=== PATIENT | male | born 1940 | race Caucasian/White ===

== ENCOUNTER 2017-01-15 19:45 | Inpatient (IN) | payer MEDICARE, BC ==
[2017-01-13 19:10] LABS: BASOPHILS ABSOLUTE 0.1 10/3/uL (0.0-0.2); EOSINOPHILS ABSOLUTE 0.1 10/3/uL (0.0-0.5); HEMOGLOBIN 10.2 g/dL (13.6-17.8); LYMPHOCYTES 5.8 %; LYMPHOCYTES ABSOLUTE 0.3 10/3/uL (0.7-4.3); MEAN CORPUS HGB CONC 32.5 g/dL (32.0-36.0); MEAN CORPUSCULAR HEMOGLOB 29.7 pg (26.0-34.0); MEAN PLATELET VOLUME 9.4 fL (6.8-10.8); MONOCYTES 12.9 %; MONOCYTES ABSOLUTE 0.7 10/3/uL (0.2-1.2); NEUTROPHILS 78.3 %; NEUTROPHILS ABSOLUTE 4.5 10/3/uL (2.0-8.4); PLATELET COUNT 257 10/3/uL (150-400); RBC DISTRIBUTION WIDTH 15.6 % (12.0-16.0); RED CELL COUNT 3.44 10/6/uL (4.7-6.1); WHITE BLOOD CELLS 5.8 10/3/uL (4.5-10.5)
[2017-01-13 19:17] LABS: HEMATOCRIT 31.4 % (40.0-51.0); MANUAL DIFF NO %; MEAN CORPUSCULAR VOLUME 91.2 fL (80-100)
--- NOTE | ~2017-01-15 | CN ---
Consultation Report [facility] [address] [place]. [address] NAME: FRED GARCIA : 41 STATUS : ADM IN PAT#: [id number] AGE: 76 ADM/REG DATE : 01/15/17 MR#: [id number] REPORT SERV DATE: 01/19/17 DICTATED BY: SHERRY ELIZABETH DATE: 01/18/17 REPORT STATUS : Draft TRANSCRIBED BY: MODGiorgi DATE: 01/18/17 INFECTIOUS DISEASE CONSULT. DATE OF CONSULTATION: 01/18/2017 REASON FOR CONSULTATION: Pneumonia. HISTORY OF PRESENT ILLNESS: This is a very pleasant 76-year-old man, who underwent cardiac transplant back in 2001, who also has end-stage renal disease on chronic dialysis for the past two years. He was in his baseline state of health until about a week ago when he developed some shortness of breath and cough which became productive of some light beige colored sputum. Two days after this he saw his primary care physician, and says he was given an intramuscular shot and started on oral Levaquin which he took that day and again 48 hours later. His cough though during this time progressed and he also had some mild low- grade fevers subjectively and worsening shortness of breath, and he called his fur plucker at [facility] who recommended hospitalization, and the patient presented to the emergency department early on the evening of 01/15/2017. His white blood cell count was normal. His chest x-ray though showed a worsening left upper lobe infiltrate compared to a film from 01/13/2017 which itself was changed from the prior film. He was started on Zosyn. The patient states that he has steadily improved since admission and is "much better." His cough is decreased, his breathing is better, and he is on 1 L of oxygen only. The patient did undergo a CT scan of the chest without IV contrast on 01/17/2017 which more clearly demonstrated a dense patchy consolidation in the left upper lobe with less prominent nodular consolidation scattered throughout the right upper lobe consistent with bilateral pneumonia. There were some old chronic changes also noted including loculated fluid in the major fissure which is less than prior studies and calcified pleural plaques. The patient states he did receive influenza vaccination this year for this flu season and is up to date on Pneumovax, but has not received Prevnar. PAST MEDICAL HISTORY: In addition is as noted above. Positive for cardiac transplant in 2001. He had a recent evaluation about six weeks ago at [facility] including cardiac cath and cardiac biopsies all of which looked good. He has end-stage renal disease as noted, coronary artery disease, emphysema, gout, osteoarthritis. 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 ALLERGIES: NO KNOWN DRUG ALLERGIES. PRESENT MEDICATIONS: In addition to Zosyn include allopurinol, Norvasc, Lipitor, vitamin D, Celexa, mycophenolate 360 mg p.o. b.i.d., Nephro-vitamins, Protonix, tacrolimus 0.5 mg p.o. b.i.d. SOCIAL HISTORY: Past smoker. Nondrinker. Lives with his who is here in the room with him. Not really that active. No pets. No pertinent travel history recently. Consultation Report [address] [place]. [address] NAME: FRED GARCIA : 42 STATUS : ADM IN [facility]#: [id number] AGE: 76 ADM/REG DATE : 01/15/17 MR#: [id number] REPORT SERV DATE: 01/19/17 DICTATED BY: SHERRY ELIZABETH DATE: 01/18/17 REPORT STATUS : Draft TRANSCRIBED BY: SONIDO DATE: 01/18/17 FAMILY HISTORY: Notable for coronary artery disease. REVIEW OF SYSTEMS: Otherwise negative. No nausea, vomiting, diarrhea, chest pain, genitourinary symptoms. PHYSICAL EXAMINATION: VITAL SIGNS: The patient weighs 84 kg. He is afebrile. Blood pressure 128/57, pulse 95, oxygen saturation 95% on 1 L. GENERAL: He is alert and pleasant, in no acute distress. He was not coughing during my time with him. HEAD AND NECK: Conjunctivae are normal. The oral cavity is clear. No thrush. Neck is supple. No adenopathy. LUNGS: He does have a few scattered inspiratory crackles in the left posterior spence, otherwise clear on the right. CARDIAC: Regular rate and rhythm. Normal S1, S2 with a 2/6 systolic ejection murmur, loudest along the left sternal border, softer elsewhere. ABDOMEN: Soft and nontender. Bowel sounds present. No masses appreciated. EXTREMITIES: No significant edema. He has peripheral IV in the right upper extremity without phlebitis. SKIN: Without rash. LABORATORY STUDIES: White blood cell count on admission was 5.6, today 5.5, hemoglobin 7.3, and platelets 219. Albumin 2.3. Procalcitonin on 01/16/2017 was 0.53, yesterday 0.50. Admission blood cultures are negative. Serial chest x-rays are reviewed and CT scan as noted. IMPRESSION: Pneumonia in a cardiac transplantation patient who also is on dialysis, which was not responsive to outpatient Levaquin, but has been improving in the hospital on IV Zosyn. He does not have any unusual exposure history. His improvement on Zosyn is reassuring that this is unlikely to be an atypical or opportunistic pathogen. PLAN: 1. We will continue the Zosyn. 2. I will discuss options for discharge later in the week with Nephrology. Cefepime given three times a week after dialysis may be an option as I am not as confident with transition to oral antibiotic therapy in this patient especially given his failure on outpatient Levaquin. /MODL Consultation Report [address] [place]. [address] NAME: FRED GARCIA : 42 STATUS : ADM IN [facility]#: [id number] AGE: 76 ADM/REG DATE : 01/15/17 MR#: [id number] REPORT SERV DATE: 01/19/17 DICTATED BY: SHERRY ELIZABETH DATE: 01/18/17 REPORT STATUS : Draft TRANSCRIBED BY: SONIDO DATE: 01/18/17 Sherry Elizabeth M.D. / [id number] CC: Marco A Upton M.D. Stuart G Ginther, M.D.
--- NOTE | ~2017-01-15 | DS ---
Discharge Summary [facility] [address] [place]. [address] NAME: FRED GARCIA : 42 STATUS : DIS IN PAT#: [id number] AGE: 77 ADM/REG DATE : 01/15/17 MR#: [id number] REPORT SERV DATE: 03/02/17 DICTATED BY: GALEN CHAVEZ. DATE: 03/01/17 REPORT STATUS : Draft TRANSCRIBED BY: MODL DATE: 03/01/17 ADMISSION DATE: 01/15/2017 DISCHARGE DATE: 01/20/2017 ADMISSION DIAGNOSES: 1. Multifocal pneumonia with failed outpatient oral therapy. 2. Cardiac transplant patient with chronic immunosuppression. 3. Coronary artery bypass grafting. 4. End-stage renal disease. DISCHARGE DIAGNOSES: 1. Multifocal pneumonia with failed outpatient oral therapy. 2. Cardiac transplant patient with chronic immunosuppression. 3. Coronary artery bypass grafting. 4. End-stage renal disease. CONSULTATIONS: Infectious Disease, Dr. Elizabeth. PROCEDURES: Hemodialysis on 01/18/2017. HISTORY OF PRESENT ILLNESS: The patient is a 77-year-old white male with significant past medical history of end-stage renal disease, CABG, cardiac transplant on chronic immunosuppression was admitted for further evaluation and management of pneumonia. HOSPITAL COURSE: The patient was admitted for management of pneumonia. Chest x-ray revealed left upper lobe pneumonia. The patient was placed on IV antibiotics (Maxipime). He had clinical improvement. Because of the location of the pneumonia in the left upper lobe and his history of immune suppression, Infectious Disease was consulted. The patient completed course of Maxipime as an outpatient. On hemodialysis, he receive 3 g of Maxipime as the last dose on his dialysis completed as an outpatient at his dialysis unit. DISPOSITION: Disposition is to home. CONDITION: Good. FOLLOWUP: Follow up with his home hemodialysis unit. LELIA/SONIDO Galen Chavez M.D. / [id number]
--- NOTE | ~2017-01-15 | CN ---
Consultation Report [facility] [address] [place]. [address] NAME: FRED GARCIA : 42 STATUS : ADM IN PAT#: [id number] AGE: 76 ADM/REG DATE : 01/15/17 MR#: [id number] REPORT SERV DATE: 01/16/17 DICTATED BY: DATE: REPORT STATUS : Draft TRANSCRIBED BY: MODL DATE: 01/16/17 NEPHROLOGY CONSULTATION DATE OF CONSULTATION: REASON FOR ADMISSION: End-stage renal disease, known cardiac transplant with community- acquired pneumonia. HISTORY OF PRESENT ILLNESS: This is a very pleasant 76-year-old male patient, who dialyzes on a [id number] schedule at [facility]. He reports to [facility] after feeling poorly since of the previous week. He was seen by his primary care provider in evaluation and received p.o. antibiotics. As he continued to feel worse, he contacted his cardiac transplant team who insisted that he be evaluated here at [facility]. He was diagnosed with left upper lobe pneumonia and is admitted this afternoon in favor of antibiotics, further workup, and supportive care. He denies current chest pain. No nausea, vomiting, or diarrhea. He is awake, alert, and oriented, lying in bed this afternoon during evaluation. His last hemodialysis was on Wednesday per his usual schedule with no current complaints and states that he feels much improved from previous. PAST MEDICAL HISTORY: Positive for end-stage renal disease, Wednesday, Wednesday, Wednesday hemodialysis via a left upper extremity fistula; coronary artery disease, status post cardiac transplantation in 07/2002; emphysema; history of gout; hypotension with chronic use of ProAmatine; osteoarthritis; previous cervical spine fusion; anemia of chronic kidney disease; osteoarthritis; prior ischemic cardiac heart disease with multiple bypass graft surgeries; and adult-onset diabetes mellitus type 2. REVIEW OF SYSTEMS: Completed. Please see HPI for pertinent details. SOCIAL HISTORY: No ETOH. No illicit drugs. No tobacco. FAMILY HISTORY: Noncontributory and not reviewed during this consultation at admission. ALLERGIES: HE REPORTS NO KNOWN ALLERGIES. ACTIVE MEDICATIONS: Include allopurinol 100 mg p.o. daily, ASA 81 mg daily, Lipitor 40 mg p.o. at bedtime, B complex one tab p.o. daily, vitamin D 5000 units p.o. daily, Celexa 20 mg p.o. daily, Myfortic 360 mg p.o. daily, Zofran 4 mg p.o. q.6 hours p.r.n., Protonix 40 mg daily, promethazine 12.5 to 25 p.r.n. q.6 hours for emesis, and Prograf 0.5 mg p.o. b.i.d. PHYSICAL EXAMINATION: VITAL SIGNS: Blood pressure 168/78, temperature at 98.0, heart rate 84 and regular, respirations 19 per minute, and 99% on 2 L. GENERAL: He is awake, alert, and oriented x3, in no acute distress, lying in bed. Consultation Report [place] [place] [id number] [facility] [place]. [address] NAME: FRED GARCIA : 42 STATUS : ADM IN [facility]#: [id number] AGE: 76 ADM/REG DATE : 01/15/17 MR#: [id number] REPORT SERV DATE: 01/16/17 DICTATED BY: DATE: REPORT STATUS : Draft TRANSCRIBED BY: MODGiorgi DATE: 01/16/17 HEENT: Normocephalic, atraumatic. Normal ocular movements. No scleral icterus or conjunctival pallor is appreciated. NECK: Supple without thyromegaly. No JVD or mass. CHEST: Shows positive S1 and S2. No rubs or gallops. LUNGS: Diminished throughout with normal expansion and effort bilaterally. No appreciated rhonchi or wheezes during auscultation. GI: Positive bowel sounds to all four quadrants. No appreciable mass or tenderness. : Deferred. EXTREMITIES: Show positive pulses in all four extremities. No clubbing, cyanosis, or edema. He does have a right upper extremity fistula with palpable bruit and thrill. NEUROLOGIC: Appears to be grossly intact. Nonfocal. SKIN: Warm, dry, and intact to the visualized surfaces. No rash, lesions, or ecchymosis. LABORATORY DATA: Pertinent laboratories and imaging to this evaluation: Persistent upper left-sided infiltrates consistent with a left upper lobe pneumonia. Most recent CBC: White blood cell count of 4.9, RBC 2.97, hemoglobin 8.8, hematocrit 27.9, and platelets at 261. Sodium 140, potassium 3.8, chloride 98, CO2 of 31, BUN 24, creatinine 4.25. Corrected GFR 13 mL/minute, glucose of 88, calcium 8.8, magnesium 1.4. Troponin 0.20. B-natriuretic peptide 337.7. IMPRESSION AND PLAN: End-stage renal disease patient with known cardiac transplant as per history above, now admitted with left upper lobe pneumonia, onset approximately of this week with no reported associated febrile episodes, no associated chest pain or other complaints, and no elevation in his white count. As the patient currently is inpatient admission, change his current Zosyn antibiotics to Levaquin IV. Continue his current medications including his immunosuppressants as he shows no febrile episodes nor elevated white count. Place on strict I's and O's and daily weights. Next hemodialysis will be on Wednesday of the upcoming week. Check procalcitonin. Trend his troponins that are currently mildly elevated with no complaint of chest pain. We will not consult Cardiology at this time, but may consider if troponins were to trend upward. Further modification of treatment plan may be made based on clinical presentation of patient, laboratory results, and further consultation with renal attending. /SONIDO Orlando Solano NP / [id number] CC: Jose Carlos Lozada M.D. Consultation Report [address] [place]. [address] NAME: FRED GARCIA : 42 STATUS : ADM IN [facility]#: [id number] AGE: 76 ADM/REG DATE : 01/15/17 MR#: [id number] REPORT SERV DATE: 01/16/17 DICTATED BY: DATE: REPORT STATUS : Draft TRANSCRIBED BY: MODL DATE: 01/16/17 Will DIALLO
[~2017-01-15 19:45] MED LIST: ACET500CAP PO; ADVAIR INH; ALBUTEROL; AMB5 PO; AMOXIL500 MG PO; APRES25 PO; APRES50 PO; ASAB PO; AT25 PO; ATV1; ATV1 PO; BEN25 PO; BUM2 PO; C5 PO; CALTRAT600 PO; CARDCD180 PO; CELEXA20 PO; CELEXA40 MG PO; CLOBETASOL0.051 EX; COLCH6 PO; CYCLOSPORINE25 MG OR; D 5000 PO; DAPSONE 100 MG100 MG OR; DIALYVITE PO; EDECRIN 25 MG T25 MG PO; FLEX PO; HALF81 PO; IMDUR120 PO; IMDUR60 PO; KLOR-CON M2020 MEQ PO; L80 PO; LIPITOR40 PO; LORT7 PO; MAXITROL OPH; MYFORTIC180 MG PO; MYFORTIC360 MG PO; NEORAL25 MG OR; NORCO1 TA1 PO; NOVOLOG SC; P5 PO; PR12.5 PO; PRAVACHOL80 MG PO; PRILO PO; PROAIR HFA INH; PROAMAT5 PO; PROGRAF0.5 PO; PROGRAF1 PO; PROTONIX PO; RAPAMUNE PO; RESTASIS OPH; TOPXL25 PO; TUMSROLL PO; VASOTEC5 PO; VITAMIN D1000 UNI1 PO; Z100 PO
[2017-01-15 20:34] LABS: BASOPHILS 0.7 %; BASOPHILS ABSOLUTE 0.04 10/3/uL (0.0-0.16); EOSINOPHILS 2.3 %; EOSINOPHILS ABSOLUTE 0.13 10/3/uL (0.0-0.53); ER CBC TAT 0 Hrs 10 Mins; HEMATOCRIT 30.4 % (40.0-51.0); HEMOGLOBIN 9.7 g/dL (13.6-17.8); IMMATURE GRANULOCYTES 0.2 %; IMMATURE GRANULOCYTES ABSOLUTE 0.01 10/3/uL (0.0-0.11); LYMPHOCYTES 9.9 %; LYMPHOCYTES ABSOLUTE 0.56 10/3/uL (0.67-4.30); MEAN CORPUS HGB CONC 31.9 g/dL (32.0-36.0); MEAN CORPUSCULAR HEMOGLOB 29.7 pg (26.0-34.0); MEAN PLATELET VOLUME 11.1 fL (9.2-13.0); MONOCYTES 13.1 %; MONOCYTES ABSOLUTE 0.74 10/3/uL (0.21-1.20); NEUTROPHILS 73.8 %; NEUTROPHILS ABSOLUTE 4.15 10/3/uL (2.02-8.40); PLATELET COUNT 271 10/3/uL (150-400); RBC DISTRIBUTION WIDTH 15.4 % (12.0-16.0); RED CELL COUNT 3.27 10/6/uL (4.7-6.1); WHITE BLOOD CELLS 5.6 10/3/uL (4.5-10.5)
[2017-01-15 20:35] LABS: MANUAL DIFF NO %
[2017-01-15 20:37] LABS: INTERNATIONAL NORMAL RATI 1.2 UNITS (-); PARTIAL THROMBO TIME 30.3 SEC (22.5-37.2); PROTIME (NOT ORD) 14.7 SEC (12.0-14.5)
[2017-01-15] MEDS ORDERED: ZOFRAN ODT4 MG PO (20:44)
[2017-01-15 21:03] LABS: CALCIUM, SERUM 8.8 MG/DL (8.5-10.4); CHLORIDE, SERUM 98 MMOL/L (96-112); CO2 (CARBON DIOXIDE) 31 MMOL/L (24-34); GLUCOSE, SERUM 88 MG/DL (60-99); SODIUM, SERUM 140 MMOL/L (135-148)
[2017-01-15 21:04] LABS: BUN (BLOOD UREA NITROGEN) 24 MG/DL (6-23); CHEST PAIN PROFILE TAT 0 Hrs 21 Mins; CREATININE 4.25 MG/DL (0.70-1.30); GFR AFRICAN AMERICAN 15 ML/MIN (>=60); GFR NON AFRICAN AMERICAN 13 ML/MIN (>=60); POTASSIUM, SERUM 3.8 MMOL/L (3.5-5.3)
[2017-01-16 06:32] LABS: BASOPHILS 0.8 %; BASOPHILS ABSOLUTE 0.04 10/3/uL (0.0-0.16); EOSINOPHILS 5.1 %; EOSINOPHILS ABSOLUTE 0.25 10/3/uL (0.0-0.53); HEMATOCRIT 27.9 % (40.0-51.0); HEMOGLOBIN 8.8 g/dL (13.6-17.8); IMMATURE GRANULOCYTES 0.2 %; IMMATURE GRANULOCYTES ABSOLUTE 0.01 10/3/uL (0.0-0.11); LYMPHOCYTES 13.6 %; LYMPHOCYTES ABSOLUTE 0.67 10/3/uL (0.67-4.30); MEAN CORPUS HGB CONC 31.5 g/dL (32.0-36.0); MEAN CORPUSCULAR HEMOGLOB 29.6 pg (26.0-34.0); MEAN CORPUSCULAR VOLUME 93.9 fL (80-100); MEAN PLATELET VOLUME 10.3 fL (9.2-13.0); MONOCYTES 17.1 %; MONOCYTES ABSOLUTE 0.84 10/3/uL (0.21-1.20); NEUTROPHILS 63.2 %; NEUTROPHILS ABSOLUTE 3.11 10/3/uL (2.02-8.40); PLATELET COUNT 261 10/3/uL (150-400); RBC DISTRIBUTION WIDTH 15.2 % (12.0-16.0); RED CELL COUNT 2.97 10/6/uL (4.7-6.1); WHITE BLOOD CELLS 4.9 10/3/uL (4.5-10.5)
[2017-01-16 06:33] LABS: MANUAL DIFF NO %
[2017-01-16 14:34] LABS: TROPONIN I 0.23 NG/ML (<0.05)
[2017-01-16 14:49] LABS: PROCALCITONIN 0.53 ng/mL (<0.5)
[2017-01-17 07:05] LABS: BASOPHILS 0.4 %; BASOPHILS ABSOLUTE 0.02 10/3/uL (0.0-0.16); EOSINOPHILS 3.1 %; EOSINOPHILS ABSOLUTE 0.17 10/3/uL (0.0-0.53); HEMATOCRIT 25.3 % (40.0-51.0); HEMOGLOBIN 7.9 g/dL (13.6-17.8); IMMATURE GRANULOCYTES 0.4 %; IMMATURE GRANULOCYTES ABSOLUTE 0.02 10/3/uL (0.0-0.11); LYMPHOCYTES 8.7 %; LYMPHOCYTES ABSOLUTE 0.47 10/3/uL (0.67-4.30); MEAN CORPUS HGB CONC 31.2 g/dL (32.0-36.0); MEAN CORPUSCULAR HEMOGLOB 29.2 pg (26.0-34.0); MEAN CORPUSCULAR VOLUME 93.4 fL (80-100); MEAN PLATELET VOLUME 9.9 fL (9.2-13.0); MONOCYTES 15.7 %; MONOCYTES ABSOLUTE 0.85 10/3/uL (0.21-1.20); NEUTROPHILS 71.7 %; NEUTROPHILS ABSOLUTE 3.87 10/3/uL (2.02-8.40); PLATELET COUNT 225 10/3/uL (150-400); RBC DISTRIBUTION WIDTH 15.4 % (12.0-16.0); RED CELL COUNT 2.71 10/6/uL (4.7-6.1); WHITE BLOOD CELLS 5.4 10/3/uL (4.5-10.5)
[2017-01-17 07:11] LABS: MANUAL DIFF NO %
[2017-01-17 07:40] LABS: ALBUMIN 2.4 G/DL (3.5-5.0); BUN (BLOOD UREA NITROGEN) 40 MG/DL (6-23); CALCIUM, SERUM 8.7 MG/DL (8.5-10.4); CHLORIDE, SERUM 101 MMOL/L (96-112); CO2 (CARBON DIOXIDE) 25 MMOL/L (24-34); CREATININE 7.03 MG/DL (0.70-1.30); GFR AFRICAN AMERICAN 8 ML/MIN (>=60); GFR NON AFRICAN AMERICAN 7 ML/MIN (>=60); GLUCOSE, SERUM 93 MG/DL (60-99); PHOSPHORUS, SERUM 4.2 MG/DL (2.5-4.5); POTASSIUM, SERUM 3.7 MMOL/L (3.5-5.3); SODIUM, SERUM 139 MMOL/L (135-148); TROPONIN I 0.15 NG/ML (<0.05)
[2017-01-17 15:32] LABS: HEMATOCRIT 25.5 % (40.0-51.0); HEMOGLOBIN 8.1 g/dL (13.6-17.8)
[2017-01-18 00:35] LABS: HEMOGLOBIN 7.1 g/dL (13.6-17.8)
[2017-01-18 08:18] LABS: BASOPHILS 0.6 %; BASOPHILS ABSOLUTE 0.03 10/3/uL (0.0-0.16); EOSINOPHILS 4.6 %; EOSINOPHILS ABSOLUTE 0.25 10/3/uL (0.0-0.53); HEMOGLOBIN 7.3 g/dL (13.6-17.8); IMMATURE GRANULOCYTES 0.6 %; IMMATURE GRANULOCYTES ABSOLUTE 0.03 10/3/uL (0.0-0.11); LYMPHOCYTES 11.6 %; LYMPHOCYTES ABSOLUTE 0.63 10/3/uL (0.67-4.30); MEAN CORPUS HGB CONC 31.7 g/dL (32.0-36.0); MEAN CORPUSCULAR VOLUME 91.3 fL (80-100); MEAN PLATELET VOLUME 9.8 fL (9.2-13.0); MONOCYTES 12.3 %; MONOCYTES ABSOLUTE 0.67 10/3/uL (0.21-1.20); NEUTROPHILS 70.3 %; NEUTROPHILS ABSOLUTE 3.84 10/3/uL (2.02-8.40); PLATELET COUNT 219 10/3/uL (150-400); RBC DISTRIBUTION WIDTH 15.3 % (12.0-16.0); RED CELL COUNT 2.52 10/6/uL (4.7-6.1); WHITE BLOOD CELLS 5.5 10/3/uL (4.5-10.5)
[2017-01-18 08:19] LABS: MANUAL DIFF NO %
[2017-01-18 08:30] LABS: ALBUMIN 2.3 G/DL (3.5-5.0); CALCIUM, SERUM 8.7 MG/DL (8.5-10.4); CHLORIDE, SERUM 102 MMOL/L (96-112); CO2 (CARBON DIOXIDE) 23 MMOL/L (24-34); GFR AFRICAN AMERICAN 6 ML/MIN (>=60); GFR NON AFRICAN AMERICAN 5 ML/MIN (>=60); GLUCOSE, SERUM 82 MG/DL (60-99); PHOSPHORUS, SERUM 4.1 MG/DL (2.5-4.5); SODIUM, SERUM 141 MMOL/L (135-148)
[2017-01-18 08:33] LABS: BUN (BLOOD UREA NITROGEN) 48 MG/DL (6-23)
[2017-01-18 08:34] LABS: CREATININE 8.84 MG/DL (0.70-1.30)
[2017-01-20 13:46] LABS: BASOPHILS 0.3 %; BASOPHILS ABSOLUTE 0.02 10/3/uL (0.0-0.16); EOSINOPHILS 2.4 %; EOSINOPHILS ABSOLUTE 0.17 10/3/uL (0.0-0.53); HEMATOCRIT 23.2 % (40.0-51.0); HEMOGLOBIN 7.2 g/dL (13.6-17.8); IMMATURE GRANULOCYTES 0.4 %; IMMATURE GRANULOCYTES ABSOLUTE 0.03 10/3/uL (0.0-0.11); LYMPHOCYTES 6.6 %; LYMPHOCYTES ABSOLUTE 0.46 10/3/uL (0.67-4.30); MANUAL DIFF NO %; MEAN CORPUSCULAR HEMOGLOB 28.9 pg (26.0-34.0); MEAN CORPUSCULAR VOLUME 93.2 fL (80-100); MEAN PLATELET VOLUME 10.3 fL (9.2-13.0); MONOCYTES 12.5 %; MONOCYTES ABSOLUTE 0.87 10/3/uL (0.21-1.20); NEUTROPHILS 77.8 %; NEUTROPHILS ABSOLUTE 5.43 10/3/uL (2.02-8.40); PLATELET COUNT 190 10/3/uL (150-400); RBC DISTRIBUTION WIDTH 15.3 % (12.0-16.0); RED CELL COUNT 2.49 10/6/uL (4.7-6.1)
[2017-01-20 13:56] LABS: ALBUMIN 2.3 G/DL (3.5-5.0); CALCIUM, SERUM 8.3 MG/DL (8.5-10.4); CHLORIDE, SERUM 100 MMOL/L (96-112); CO2 (CARBON DIOXIDE) 23 MMOL/L (24-34); PHOSPHORUS, SERUM 3.4 MG/DL (2.5-4.5); POTASSIUM, SERUM 3.4 MMOL/L (3.5-5.3); SODIUM, SERUM 140 MMOL/L (135-148)
[2017-01-20 13:58] LABS: BUN (BLOOD UREA NITROGEN) 35 MG/DL (6-23); CREATININE 7.95 MG/DL (0.70-1.30); GFR AFRICAN AMERICAN 7 ML/MIN (>=60); GFR NON AFRICAN AMERICAN 6 ML/MIN (>=60); GLUCOSE, SERUM 124 MG/DL (60-99)
[2017-01-20] MEDS ORDERED: NORV5 PO (17:07)
== END 2017-01-20 17:37 | disposition home health service (06) | DRG 190 ==
LOC: ER 19:45 → 2SO 21:48
PROVIDERS: Emergency Medicine; Internal Medicine; Internal Medicine Nephrology; Nurse Practitioner; Registered Nurse
PROC: 5A1D60Z (ICD-10-PCS; principal; 2017-01-18)
DX: J44.0 Chronic obstructive pulmonary disease with (acute) lower respiratory infection (principal); J18.9 Pneumonia, unspecified organism; N18.6 End stage renal disease; Z94.1 Heart transplant status; E11.22 Type 2 diabetes mellitus with diabetic chronic kidney disease; J44.9 Chronic obstructive pulmonary disease, unspecified; I12.0 Hypertensive chronic kidney disease with stage 5 chronic kidney disease or end stage renal disease; D63.1 Anemia in chronic kidney disease; I25.10 Atherosclerotic heart disease of native coronary artery without angina pectoris; M10.9 Gout, unspecified; M19.90 Unspecified osteoarthritis, unspecified site; N18.9 Chronic kidney disease, unspecified; Z99.2 Dependence on renal dialysis; Z95.1 Presence of aortocoronary bypass graft
CPT/HCPCS: 36415; 71010; 71020; 71250; 80048; 80069; 83735; 83880; 84145; 84484; 85014; 85018; 85025; 85610; 85730; 87040; 93005; 94640; 96374; 99285; A9270-GY; G0257; G0463; J2543